=== PATIENT | male | born 1945 | race American Indian/Alaskan Native ===

== ENCOUNTER 2016-07-29 08:28 | Day surgery (SDC) | payer OTHER ==
--- NOTE | ~2016-07-29 | EGD ---
EGD REPORT [facility] [address] [id number] NAME: KALI HERNANDEZ : [birth year] STATUS : REG [facility]#: [id number] AGE: 71 ADM/REG DATE : 07/29/16 MR#: [id number] REPORT SERV DATE: 07/29/16 DICTATED BY: DATE: REPORT STATUS : Draft TRANSCRIBED BY: [employer] DATE: 07/29/16 [facility] Patient Name: Kali Hernandez Date of : 1945 Attending MD: DAKOTA SHEIKH MD Procedure Date No Time: 07/29/2016 Procedure: Colonoscopy Indications: Personal history of malignant neoplasm of the colon Referring MD: Brittany Washington Medicines: Propofol per Anesthesia Complications: No immediate complications. Procedure: Pre-Anesthesia Assessment: - ASA Grade Assessment: III - A patient with severe systemic disease. After I obtained informed consent, the scope was passed under direct vision. Throughout the procedure, the patient's blood pressure, pulse, and oxygen saturations were monitored continuously. The CF [id number] was introduced through the anus and advanced to the cecum, identified by appendiceal orifice and ileocecal valve. The entire colon was examined. Findings: The perianal and digital rectal examinations were normal. Many small and large-mouthed diverticula were found in the recto-sigmoid colon, in the sigmoid colon, in the descending colon and at the splenic flexure. Internal hemorrhoids were found during retroflexion and were Grade I (internal hemorrhoids that do not prolapse). The rest of the colon was normal. Impression: - Diverticulosis in the recto-sigmoid colon, in the sigmoid colon, in the descending colon and at the splenic flexure. - Internal hemorrhoids. Recommendation: - Discharge patient to home (ambulatory). - Repeat colonoscopy in 5 years for surveillance. Procedure Code(s): --- Professional --- 34587, Colonoscopy, flexible, proximal to splenic flexure; diagnostic, with or without collection of specimen(s) by brushing or washing, with or without colon decompression (separate procedure) EGD REPORT [facility] [address] [place] [address] [address] [id number] NAME: KALI HERNANDEZ : [birth year] STATUS : REG [facility] PAT#: [id number] AGE: 71 ADM/REG DATE : 07/29/16 MR#: [id number] REPORT SERV DATE: 07/29/16 DICTATED BY: DATE: REPORT STATUS : Draft TRANSCRIBED BY: [employer] DATE: 07/29/16 Diagnosis Code(s): --- Professional --- K64.0, First degree hemorrhoids K57.30, Diverticulosis of large intestine without perforation or abscess without bleeding Z85.038, Personal history of other malignant neoplasm of large intestine CPT copyright 2013 [employer]. All rights reserved. The codes documented in this report are preliminary and upon computer language coder review may be revised to meet current compliance requirements. Dakota Sheikh MD DAKOTA SHEIKH MD 07/29/2016 9:51 AM This report has been signed electronically. Number of Addenda: 0 Note Initiated On: 07/29/2016 9:31 AM Scope Withdrawal Time 0 hours 8 minutes 57 seconds [id number] [facility] [id number]
[~2016-07-29 08:28] MED LIST: ASAB PO; BACDS PO; CYANO1000T PO; FISH OIL300 MG PO; FOLIC PO; GLUCPH PO; HYDROCHLOROT12.5 MG PO; MOBIC15 MG PO; MTX2.5 PO; NORV5 PO; PRIN20 PO; ZOCOR40 PO
== END 2016-07-29 23:59 | disposition home or self-care (01) ==
LOC: DMU 08:28
PROVIDERS: Internal Medicine Gastroenterology
PROC: 0DJD8ZZ Inspection of Lower Intestinal Tract, Via Natural or Artificial Opening Endoscopic (ICD-10-PCS; principal; 2016-07-29 10:00)
DX: K57.30 Diverticulosis of large intestine without perforation or abscess without bleeding (principal); Z85.038 Personal history of other malignant neoplasm of large intestine; K64.0 First degree hemorrhoids; I10 Essential (primary) hypertension; E11.9 Type 2 diabetes mellitus without complications; L40.9 Psoriasis, unspecified; E78.1 Pure hyperglyceridemia
CPT/HCPCS: 82962